=== PATIENT | female | born 1955 | race Caucasian/White ===

== ENCOUNTER 2017-07-16 06:32 | Emergency (ER) | payer OTHER ==
[~2017-07-16 06:32] MED LIST: ALPR0.5T PO; FENO135C PO; FLUT1DIS3 INH; GLIM4TAB2 PO; IRBE300T3 PO; METH4TAB2 PO; MONT10TA9 PO; PRAV20TA2 PO; PROAIR HFA8.5 GM IH
--- NOTE | 2017-07-16 07:41 | RAD ---
Right foot, 3 views, 07/16/2017: History: Fall, foot pain The bony structures are demineralized. No fracture or dislocation is identified. There are mild scattered degenerative changes. There is a moderate sized inferior calcaneal spur. Moderate subcutaneous edema is present. IMPRESSION: 1. Demineralization. 2. Degenerative change. 3. No acute bony abnormality is detected.
--- NOTE | 2017-07-16 08:01 | PHYS DOC ---
Past Medical History Past Medical History: Anxiety, Bipolar, COPD, Diabetes-Type II, High Cholesterol, Hypertension, Other Additional Past Medical Histor: emphysema, morbid obesity Past Surgical History: , Tonsillectomy Alcohol Use: None Drug Use: Marijuana Adult General Chief Complaint Chief Complaint: MECHANICAL FALL HPI HPI Patient is a 61 year old female who presents with foot pain after a fall. The patient states just prior to arrival her right knee gave out, causing her to fall to the ground. This is a common occurrence for the patient, not associated with knee pain or injury. She states she fell to the ground, twisted her right foot, now complains of pain to the dorsum of the foot with swelling. She was unable to bear weight at home. She denies head trauma, loss of consciousness, other injuries. No syncope, lightheadedness, chest pain, palpitations. No prior foot fracture or surgery. Review of Systems Review of Systems Constitutional: Denies fever or chills HENT: Denies nasal congestion or sore throat Respiratory: Denies cough or shortness of breath Cardiovascular: Denies chest pain or edema GI: Denies abdominal pain Musculoskeletal: Reports foot pain Integument: Denies rash or skin lesions Neurologic: Denies headache, focal weakness or sensory changes All other systems were reviewed and found to be within normal limits, except as documented in this note. Allergies Allergies Allergies Coded Allergies Type Severity Reaction Last Updated Verified egg Allergy Intermediate 11/21/14 No Physical Exam Physical Exam Constitutional: obese, no acute distress, non-toxic appearance. HENT: Normocephalic, atraumatic, bilateral external ears normal, oropharynx moist, nose normal. Eyes: conjunctiva normal, no discharge. Neck: supple, no stridor. Cardiovascular: no edema. Lungs & Thorax: no respiratory distress. Abdomen: nondistended. Skin: Warm, dry, no erythema, no rash. Extremities: right foot mild dorsal swelling without deformity, no knee, ankle tenderness but tenderness over metacarpals 2-4, able to move toes & dorsiflex/ plantarflex, dp/pt 2+, sensation intact to foot. Neurologic: Alert and oriented X 3, no focal deficits noted. Psychologic: Affect normal, judgement normal, mood normal. Current Patient Data Vital Signs Vital Signs Date Time Temp Pulse Resp B/P (MAP) Pulse Ox O2 Delivery O2 Flow Rate FiO2 07/16/17 08:22 69 20 96 07/16/17 06:38 98.7 Room Air 98.7 EKG EKG [] Radiology/Procedures Radiology/Procedures PROCEDURE: FOOT RIGHT 3V Right foot, 3 views, 07/16/2017: History: Fall, foot pain The bony structures are demineralized. No fracture or dislocation is identified. There are mild scattered degenerative changes. There is a moderate sized inferior calcaneal spur. Moderate subcutaneous edema is present. IMPRESSION: 1. Demineralization. 2. Degenerative change. 3. No acute bony abnormality is detected. DICTATED and SIGNED BY: LUZ ELENA YEN MD DATE: 07/16/17 0535[] Course & Med Decision Making Course & Med Decision Making Pertinent Labs and Imaging studies reviewed. (See chart for details) The patient presents with foot pain after a fall. X-ray shows no acute injury. Will give yobany wrap & post op shoe for comfort. Recommend rest, tylenol/ ibuprofen, she has her own norco that she can take as needed, apply ice, elevate. Follow up as needed with PCP or Dr. Matt in orthopedic clinic if not improving in 1-2 weeks. Come back for neurovascular compromise or otherwise worsening condition. Discharged home in stable condition. [] Dragon Disclaimer Dragon Disclaimer This electronic medical record was generated, in whole or in part, using a voice recognition dictation system. Departure Departure Impression: Primary Impression: Foot sprain Disposition: 01 HOME, SELF-CARE Condition: STABLE Referrals: DIPIKA HERNANDEZ MD (PCP) JULIO MATT MD Patient Instructions: Foot Sprain Additional Instructions: You were seen in the emergency department today for foot injury. Your x-ray did not show a broken bone. Please rest, ice, elevate. You can take ibuprofen & your home pain medication as needed. Wear yobany wrap & post op shoe for comfort. Follow up as needed with primary care or Dr. Matt in the orthopedic clinic if not improving in 1-2 weeks. Problem Qualifiers Primary Impression: Foot sprain Encounter type: initial encounter Laterality: right Qualified Codes: S93.601A - Unspecified sprain of right foot, initial encounter IDALIA ESCOBEDO MD Jul 16, 2017 08:01
[2017-07-16 08:22] VITALS: BP 157/74
== END 2017-07-16 08:23 | disposition home or self-care (01) ==
LOC: ER 06:32
DX: S93.601A Unspecified sprain of right foot, initial encounter (principal); F41.9 Anxiety disorder, unspecified; F31.9 Bipolar disorder, unspecified; E11.9 Type 2 diabetes mellitus without complications; E78.00 Pure hypercholesterolemia, unspecified; I10 Essential (primary) hypertension; E66.01 Morbid (severe) obesity due to excess calories; F12.10 Cannabis abuse, uncomplicated; J43.9 Emphysema, unspecified; Z91.012 Allergy to eggs; W18.39XA Other fall on same level, initial encounter; Y93.89 Activity, other specified; Y92.89 Other specified places as the place of occurrence of the external cause; Y99.8 Other external cause status
CPT/HCPCS: 73630; 99284

== ENCOUNTER → 2019-06-26 | Outpatient (CLI) | payer OTHER ==
[~2019-06-26] MED LIST changes: +ALBU2.5V8 IH; -GLIM4TAB2 PO; +GLIM4TAB4 PO; +MONT10TA49 PO; -MONT10TA9 PO; -PROAIR HFA8.5 GM IH
--- NOTE | 2019-06-27 13:51 | RAD ---
DATE: 06/26/2019 EXAM: DIGITAL SCREEN BILAT W/CAD HISTORY: Routine screening COMPARISON: 09/08/2012 screening mammogram This study was interpreted with the benefit of Computerized Aided Detection (CAD). Breast Density: SCATTERED The breast parenchyma shows scattered fibroglandular densities. Breast parenchyma level B. FINDINGS: No new mass or distortion. Right upper outer lymph nodes are present at the lower axillary level. No suspicious calcification. IMPRESSION: Stable BI-RADS CATEGORY: 1 NEGATIVE RECOMMENDED FOLLOW-UP: 12M 12 MONTH FOLLOW-UP PQRS compliance statement: Patient information was entered into a reminder system with a target due date for the next mammogram. Mammography is a sensitive method for finding small breast cancers, but it does not detect them all and is not a substitute for careful clinical examination. A negative mammogram does not negate a clinically suspicious finding and should not result in delay in biopsying a clinically suspicious abnormality. "Our facility is accredited by the [employer] Mammography Program."
== END | disposition home or self-care (01) ==
LOC: MAMMO 11:17
PROVIDERS: ATTEND Pediatrics
DX: Z12.31 Encounter for screening mammogram for malignant neoplasm of breast (principal)
CPT/HCPCS: 77067